=== PATIENT | male | born 1955 | race Two or more races ===

== ENCOUNTER 2018-10-06 22:08 | Emergency (ER) | payer MEDICAID ==
[~2018-10-06] VITALS: Ht 182.9 cm; Wt 76.0 kg
[2018-10-06 22:11] VITALS: BP 116/79
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
== END 2018-10-06 23:36 | disposition home or self-care (01) ==
LOC: ED 22:59
DX: T25.122A Burn of first degree of left foot, initial encounter (principal); T25.121A Burn of first degree of right foot, initial encounter; T31.0 Burns involving less than 10% of body surface; X08.8XXA Exposure to other specified smoke, fire and flames, initial encounter; Y93.89 Activity, other specified; Y92.89 Other specified places as the place of occurrence of the external cause; Y99.8 Other external cause status
CPT/HCPCS: 16000; 99283; 99284

== ENCOUNTER 2018-10-11 12:14 | Emergency (ER) | payer MEDICAID ==
[~2018-10-11] VITALS: Ht 182.9 cm; Wt 75.5 kg
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
[2018-10-11] MEDS ORDERED: IBUPROFEN 200 MG TABLET PO ONE (13:00)
[2018-10-11] MEDS ORDERED: ACETAMINOPHEN 325 MG TABLET PO ONE (13:00)
[2018-10-11] MEDS ORDERED: ACETAMINOPHEN 325 MG TABLET ONE (13:02)
[2018-10-11] MEDS ORDERED: IBUPROFEN 200 MG TABLET ONE (13:02)
--- NOTE | 2018-10-11 13:08 | NUR ---
PT MEDICATED NOTED PER ORDER FOR 10/10 THROAT PAIN. REQUESTING "CRACKERS, JUICE, MILK, CEREAL, ANYTHING I CAN HAVE TO EAT." DISCUSSED WITH JUAN FRANCISCO LARSEN, PT PROVIDED CRACKERS WITH PEANUT BUTTER (DENIES PEANUT BUTTER ALLERGY OR ANY FOOD OR DRUG ALLERGIES), CEREAL AND MILK, WATER AND JUICE. TOLERATING PO WELL, DENIES ANY DIFFICULTY SWALLOWING, CLEARING OWN SECRETIONS WITHOUT DIFFICUTLY.
--- NOTE | 2018-10-11 13:22 | NUR ---
JUAN FRANCISCO LARSEN AT BEDSIDE FOR RECHECK, DISCUSSING DISCHARGE POC.
[2018-10-11 13:24] VITALS: BP 114/71
== END 2018-10-11 13:35 | disposition home or self-care (01) ==
LOC: ED 13:25
DX: J02.8 Acute pharyngitis due to other specified organisms (principal); B97.89 Other viral agents as the cause of diseases classified elsewhere
CPT/HCPCS: 87081; 87880; 99283

== ENCOUNTER 2019-11-15 13:30 | Emergency (ER) | payer MEDICAID, MEDICARE, OTHER ==
[~2019-11-15] VITALS: Ht 182.9 cm; Wt 71.9 kg
--- NOTE | 2019-11-15 14:06 | NUR ---
PT USES CRYSTAL METH WITH THE LAST USE PRAMOD 2.5 DAYS AGO. PT STATES THAT HE FEELS ANXIOUS AND THAT HIS HEART IS RACING. PLACED PT ON DIETARY ASSISTANT. MD AT BEDSIDE. WILL CONTINUE TO MONITOR.
[2019-11-15] MEDS ORDERED: LORazepam 2 MG/ML, 1ML ONE (14:17)
[2019-11-15] MEDS ORDERED: LORazepam 2 MG/ML, 1ML IVPush ONE (14:30)
[2019-11-15] MEDS ORDERED: SODIUM CHLORIDE FLUSH 10ML SYR IVF ONE (14:30)
--- NOTE | 2019-11-15 14:46 | NUR ---
REPORT RECEIVED FROM MARK MENG. PLAN OF CARE DISCUSSED.
[2019-11-15 14:49] LABS: BASOPHILS # (AUTO) 0.03 x10^3/uL (0-0.1); BASOPHILS % (AUTO) 1 % (0-1); EOSINOPHILS # (AUTO) 0.02 x10^3/uL (0-0.4); EOSINOPHILS % (AUTO) 0 % (1-7); LYMPHOCYTES # (AUTO) 1.52 x10^3/uL (1-3.4); LYMPHOCYTES % (AUTO) 21 % (22-44); MD NO; MEAN CORPUSCULAR HEMOGLOBIN 32.1 pg (27.5-34.5); MEAN CORPUSCULAR HGB CONC 33.8 g/dL (33.2-36.2); MEAN PLATELET VOLUME 9.4 fL (7.4-10.4); MONOCYTES # (AUTO) 0.46 x10^3/uL (0.2-0.8); MONOCYTES % (AUTO) 6 % (2-9); NEUTROPHILS % (AUTO) 72 % (42-75); PLATELET COUNT 253 x10^3/uL (130-400); RED BLOOD COUNT 5.14 x10^6/uL (4.38-5.82); RED CELL DISTRIBUTION WIDTH 15.3 % (9.4-14.8)
[2019-11-15 14:59] LABS: ALBUMIN 3.7 g/dL (3.4-5.0); ANION GAP 8 mmol/L (5-15); CALCIUM 9.1 mg/dL (8.5-10.1); CHLORIDE 98 mmol/L (98-107); CREATININE 0.93 mg/dL (0.7-1.3)
[2019-11-15 15:02] VITALS: BP 127/67
[2019-11-15 15:02] LABS: TROPONIN I < 0.015 ng/mL (0.000-0.045)
== END 2019-11-15 16:11 | disposition home or self-care (01) ==
LOC: ED 14:09
DX: R00.2 Palpitations (principal); R00.0 Tachycardia, unspecified; F41.1 Generalized anxiety disorder; R07.89 Other chest pain; F15.10 Other stimulant abuse, uncomplicated
CPT/HCPCS: 36415; 71045; 80048; 82040; 84484; 85025; 93005; 96374; 99285; J2060